=== PATIENT | female | born 1965 | race Caucasian/White ===

== ENCOUNTER → 2018-09-30 | Outpatient (CLI) | payer BC ==
[2018-09-30 17:06] LABS: Basophils # (A) 0.1 k/uL (0-0.2); Basophils % (A) 1 %; Eosinophils # (A) 0.4 k/uL (0-0.7); Eosinophils % (A) 6 %; HCT 36.1 % (34.0-46.0); HGB 11.8 gm/dL (11.4-16.0); Lymphocytes # (A) 3.6 k/uL (1.0-4.8); Lymphocytes % (A) 47 %; MCH 30.2 pg (25.0-35.0); MCHC 32.7 g/dL (31.0-37.0); MCV 92.2 fL (80.0-100.0); Mean Platelet Volume 7.2; Monocytes # (A) 0.4 k/uL (0-1.0); Monocytes % (A) 5 %; Neutrophils # (A) 2.9 k/uL (1.3-7.7); Neutrophils % (A) 39 %; Platelet Count 169 k/uL (150-450); RBC 3.91 m/uL (3.80-5.40); RDW 13.3 % (11.5-15.5); WBC 7.6 k/uL (3.8-10.6)
== END | disposition home or self-care (01) ==
LOC: LABPAT 16:03
PROVIDERS: ATTEND Obstetrics & Gynecology
DX: Z01.812 Encounter for preprocedural laboratory examination (principal); N87.1 Moderate cervical dysplasia
CPT/HCPCS: 36415; 85025

== ENCOUNTER 2018-10-15 07:56 | Day surgery (SDC) | payer BC ==
[2018-10-13 11:25] VITALS: BMI 24.3
[~2018-10-15 07:56] MED LIST: DEXAMETHASONE SOD PHOSPHATE 10 MG/ML 1 ML VIAL IV ONE; HYDROmorphone 0.5 MG/0.5 ML SYRINGE IVP PRN; LACTATED RINGERS 1,000 ML IV SCH; MIDAZOLAM 2 MG/2 ML VIAL IV PRN; ONDANSETRON 4 MG/2 ML VIAL IVP ONE; Pre Op ABX Message 1 EACH MISC MISCELLANE ONE
[2018-10-15] MEDS ORDERED: LIDOCAINE 1% 20 ML VIAL (10MG/ML) FOR IV START INTRADERMA ONE (08:26)
[2018-10-15] MEDS ORDERED: PROPOFOL 10 MG/ML 20 ML VIAL IV ONE (09:39)
[2018-10-15] MEDS ORDERED: MIDAZOLAM 2 MG/2 ML VIAL ONE (09:39)
[2018-10-15] MEDS ORDERED: KETOROLAC 30 MG/ML 1 ML VIAL ONE (09:39)
[2018-10-15] MEDS ORDERED: fentaNYL (PF) 50 MCG/ML 2 ML AMP ONE (09:39)
[2018-10-15] MEDS ORDERED: LIDOCAINE 1% INJ 10MG/ML (20 ML MDV) ONE (09:39)
[2018-10-15] MEDS ORDERED: IBUPROFEN 600 MG TAB PO PRN (09:46)
[2018-10-15] MEDS ORDERED: ONDANSETRON 4 MG/2 ML VIAL IVP PRN (09:46)
[2018-10-15] MEDS ORDERED: diphenhydrAMINE 50 MG/ML 1 ML VIAL IVP PRN (09:46)
[2018-10-15] MEDS ORDERED: METOCLOPRAMIDE 5 MG/ML 2 ML VIAL IVP PRN (09:46)
[2018-10-15] MEDS ORDERED: KETOROLAC 30 MG/ML 1 ML VIAL IVP PRN (09:46)
[2018-10-15] MEDS ORDERED: SIMETHICONE 80 MG CHEWABLE PO PRN (09:46)
[2018-10-15] MEDS ORDERED: Acetaminophen-Codeine 300-30mg TAB PO PRN ×2 (09:46)
[2018-10-15] MEDS ORDERED: LACTATED RINGERS 1,000 ML IV SCH (10:00)
--- NOTE | 2018-10-15 10:14 | P.OP ---
Date of Procedure: 10/15/18 Preoperative Diagnosis: #1. Endocervical DAYANNA-2 Postoperative Diagnosis: Same Procedure(s) Performed: #1. Cold knife cervical cone Anesthesia: other (Gen. by face mask) Surgeon: Naseem Saunders Estimated Blood Loss (ml): 5 IV fluids (ml): 200 Urine output (ml): 100 Pathology: other (Cervical cone) Condition: stable Disposition: PACU Operative Findings: Preoperatively, the cervix was noted to have no ectocervical nonstaining tissue. There was minimal cervical descensus making the patient a poor candidate for vaginal instructed he should become necessary. A cone was taken approximately 1-1-1/2 cm across and vertically by a depth of approximately 2-2 and half centimeters and appeared to be entirely intact. Description of Procedure: The patient was prepped and draped in usual fashion after general anesthesia was administered by the anesthesiologist. A weighted speculum was placed in the bladder draining approximate 100 mL of clear ro urine. The cervix was grasped with single-tooth tenaculum and cervical stay sutures placed from 10:00 to 8:00 and 2:00 to 4:00 at the cervicovaginal junction using 0 Vicryl where they were firmly tied down and used for traction. The cervix was then stained with Lugol's iodine with no ectocervical nonstaining areas noted. The uterine sound was placed through the cervix and into the fundus as a guide. An 11 blade scalpel was utilized to take a roughly 2 cm in depth: Circumferentially around the uterine sound which was then removed. The cone was grasped with a Allis clamp anterior to posterior and traction applied allowing it to be severed at it s base and sent for pathological diagnoses. The base of the cone was thoroughly cauterized with the ball cautery and then Monsel's applied as a secondary measure with minimal ongoing bleeding. Total blood loss for the case was 5 mL or less. There were no complications. All sponge, instrument, and needle counts were correct. The patient tolerated the procedure well and proceeded to the recovery room in stable condition.
[2018-10-15 10:30] VITALS: TEMP 97
[2018-10-15 10:57] VITALS: RESP 16
[2018-10-15 11:27] VITALS: BP 127/78; PULSE 57
== END 2018-10-15 11:39 | disposition home or self-care (01) ==
LOC: OR 07:56
PROVIDERS: ATTEND Obstetrics & Gynecology
DX: N87.1 Moderate cervical dysplasia (principal); F17.210 Nicotine dependence, cigarettes, uncomplicated; Z88.3 Allergy status to other anti-infective agents; E07.9 Disorder of thyroid, unspecified; F32.9 Major depressive disorder, single episode, unspecified; F41.9 Anxiety disorder, unspecified; E78.5 Hyperlipidemia, unspecified; Z79.890 Hormone replacement therapy; Z79.899 Other long term (current) drug therapy
CPT/HCPCS: 88307; 57520; J2250; J2001; J3010; J1885; J2704

== ENCOUNTER → 2020-02-08 | Outpatient (CLI) | payer BC ==
--- NOTE | 2020-02-08 21:41 | CT ---
EXAMINATION TYPE: CT chest wo con DATE OF EXAM: 02/08/2020 COMPARISON: Chest x-ray February 26, 2015 HISTORY: Cough CT DLP: 379 mGycm. Automated Exposure Control for Dose Reduction was Utilized. TECHNIQUE: CT scan of the thorax is performed without IV contrast. FINDINGS: LUNGS: There is mild to moderate underlying emphysematous change with moderate pulmonary/parenchymal fibrosis in the apices extending posteriorly right slightly larger than left. No suspicious focal con solidation or groundglass opacity. No pleural effusion or pneumothorax seen bilaterally. No suspiciou s nodules or masses. MEDIASTINUM: Lack of IV contrast is noted to limit evaluation for mediastinal and especially hilar ad enopathy. There are no definitive greater than 1 cm hilar or mediastinal lymph nodes. No cardiomega ly or pericardial effusion is seen. Somewhat small size thyroid gland. OTHER: From diverticulum visualized portion of colon. Debris-filled stomach. IMPRESSION: Mild to moderate underlying emphysematous change with moderate right greater than left bi apical fibrosis. No suspicious acute pulmonary process.
== END | disposition home or self-care (01) ==
LOC: RADCTMAIN 17:45
PROVIDERS: ATTEND Family Medicine
DX: J43.9 Emphysema, unspecified (principal); J84.10 Pulmonary fibrosis, unspecified
CPT/HCPCS: 71250

== ENCOUNTER → 2023-03-10 | Outpatient (CLI) | payer BC ==
--- NOTE | 2023-03-11 13:04 | MM ---
Reason for Exam: Screening (asymptomatic). Last mammogram was performed 22 year(s) and 3 month(s) ago. Patient History: Menarche at age 13. First Full-Term at age 16. Postmenopausal. Maternal grandmother had breast cancer at or over age 50. Risk Values: Raiza 5 year model risk: 0.9%. NCI Lifetime model risk: 5.1%. Prior Study Comparison: 02/07/2000 Bilateral Diagnostic Mammogram, [facility]. 11/25/2000 Bilateral Diagnostic Mammogram, [facility]. Tissue Density: There are scattered fibroglandular densities. Findings: Analyzed By CAD. Focal asymmetry left breast both lateral and medially the first laterally measuring 7 mm is 6 cm from the nipple. The second measuring 6 mm is also 6 cm from the nipple medially on left CC view. These are located inferior and superior on MLO view. Right breast asymmetry laterally on CC view 2.6 cm from the nipple measuring 5 mm. There is no suspicious group of microcalcifications or new suspicious mass. Overall Assessment: Incomplete: need additional imaging evaluation, BI-RAD 0 Management: Diagnostic Breast Ultrasound of the left breast. Diagnostic Mammogram of the right breast. [facility] will attempt to contact patient to return for supplemental views and ultrasound if indicated. Patient should continue monthly self-breast exams. A clinical breast exam by your physician is recommended on an annual basis. This exam should not preclude additional follow-up of suspicious palpable abnormalities. Note on Raiza scores and lifetime risk: 1. A Raiza score greater than 3% is considered moderate risk. If this is the case, consider specialist referral to assess eligibility for a risk reducing agent. 2. If overall lifetime risk for the development of breast cancer is 20% or higher, the patient may qualify for future screening with alternating mammogram and breast MRI. Electronically signed and approved by: Karson Quiles DO
== END | disposition home or self-care (01) ==
LOC: RADMAMWWP 07:41
PROVIDERS: ATTEND Family Medicine
DX: Z12.31 Encounter for screening mammogram for malignant neoplasm of breast (principal); Z78.0 Asymptomatic menopausal state; Z80.3 Family history of malignant neoplasm of breast
CPT/HCPCS: 77067

== ENCOUNTER → 2023-03-20 | Outpatient (CLI) | payer BC ==
--- NOTE | 2023-03-20 08:55 | MM ---
Reason for Exam: Additional evaluation requested from prior study. Last screening mammogram was performed less than 1 month ago. Patient History: Menarche at age 13. First Full-Term at age 16. Postmenopausal. Maternal grandmother had breast cancer at or over age 50. Risk Values: Raiza 5 year model risk: 0.9%. NCI Lifetime model risk: 5.1%. Tissue Density: Right: There are scattered fibroglandular densities. Findings: Analyzed By CAD. Under compression no persistent suspicious asymmetric density spiculated or lobular mass is evident. Right medial lateral view appears unremarkable. No suspicious groups of microcalcifications, spiculated or lobular masses, architectural distortion or other secondary signs of malignancy are mammographically apparent. Overall Assessment: Incomplete: need additional imaging evaluation, BI-RAD 0 Management: Diagnostic Breast Ultrasound of the left breast. A negative mammogram report should not preclude additional follow up of suspicious palpable abnormalities. Patient should continue monthly self breast exam. A clinical breast exam by your physician is recommended on an annual basis and results should be correlated with mammographic findings. Electronically signed and approved by: Trever Triplett D.O. Radiologis
--- NOTE | 2023-03-20 09:28 | USB ---
Reason for Exam: Additional evaluation requested from abnormal screening. Patient History: Menarche at age 13. First Full-Term at age 16. Postmenopausal. Maternal grandmother had breast cancer at or over age 50. Risk Values: Raiza 5 year model risk: 0.9%. NCI Lifetime model risk: 5.1%. Prior Study Comparison: 02/07/2000 Bilateral Diagnostic Mammogram, [facility]. 11/25/2000 Bilateral Diagnostic Mammogram, [facility]. 03/10/2023 Bilateral MG screening mammo w CAD, [facility]. Findings: The whole breast of the left breast, the axilla of the left breast and the retroareolar of the left breast were scanned. There is a 0.5 x 0.3 x 0.6 cm old hypoechoic area with good through transmission may correlate with the mammographic finding 6 cm the 8 o'clock position. At 12:00 position 6 cm from the nipple measuring 0.5 x 0.3 x 0.4 cm simple appearing cyst. Overall Assessment: Benign, BI-RAD 2 Management: Screening Mammogram of both breasts in 1 year. A clinical breast exam by your physician is recommended on an annual basis and results should be correlated with mammographic findings. This exam should not preclude additional follow-up of suspicious palpable abnormalities. Results were given to the patient verbally at the time of exam. Electronically signed and approved by: Trever Triplett D.O. Radiologis
== END | disposition home or self-care (01) ==
LOC: RADMAMWWP 08:26
PROVIDERS: ATTEND Family Medicine
DX: R92.321 Mammographic fibroglandular density, right breast (principal); Z78.0 Asymptomatic menopausal state; Z80.3 Family history of malignant neoplasm of breast
CPT/HCPCS: 77061; 77065

== ENCOUNTER → 2024-04-19 | Outpatient (CLI) | payer BC ==
--- NOTE | 2024-04-19 08:11 | MM ---
Reason for Exam: Screening (asymptomatic). Last mammogram was performed 1 year(s) and 2 month(s) ago. Patient History: Menarche at age 13. First Full-Term at age 16. Postmenopausal. Maternal grandmother had breast cancer, age 90. Risk Values: Raiza 5 year model risk: 0.9%. NCI Lifetime model risk: 5.0%. Prior Study Comparison: 11/25/2000 Bilateral Diagnostic Mammogram, [facility]. 03/10/2023 Bilateral MG screening mammo w CAD, [facility]. 03/20/2023 Right MG 3D work up w/cad RT, [facility]. Tissue Density: The breasts are heterogeneously dense, which may obscure small masses. Findings: Analyzed By CAD. There is stable 6 mm circumscribed round mass posteriorly in the left breast. There is no suspicious group of microcalcifications or new suspicious or enlarging mass in either breast. Overall Assessment: Negative, BI-RAD 1 Management: Screening Mammogram of both breasts in 1 year. . Patient should continue monthly self-breast exams. A clinical breast exam by your physician is recommended on an annual basis. This exam should not preclude additional follow-up of suspicious palpable abnormalities. Note on Raiza scores and lifetime risk: 1. A Raiza score greater than 3% is considered moderate risk. If this is the case, consider specialist referral to assess eligibility for a risk reducing agent. 2. If overall lifetime risk for the development of breast cancer is 20% or higher, the patient may qualify for future screening with alternating mammogram and breast MRI. [facility], , 04/19/2024 8:08 AM. Electronically signed and approved by: Christoph Russo M.D.
== END | disposition home or self-care (01) ==
LOC: RADMAMWWP 06:59
PROVIDERS: ATTEND Family Medicine
DX: Z12.31 Encounter for screening mammogram for malignant neoplasm of breast (principal); R92.333 Mammographic heterogeneous density, bilateral breasts; Z78.0 Asymptomatic menopausal state; Z80.3 Family history of malignant neoplasm of breast
CPT/HCPCS: 77063; 77067